=== PATIENT | female | born 1955 | race Caucasian/White ===

== ENCOUNTER 2017-09-06 07:47 | Emergency (ER) | payer OTHER ==
[2017-09-06] MEDS ORDERED: PROPARACAINE 0.5% 15 ML OPHT DROP ONE (08:00)
--- NOTE | 2017-09-06 08:12 | EDPHY ---
H & P Stated Complaint: redness/irritation l eye subconjunctivl hemorrhage inner aspect Time Seen by Provider: 09/06/17 07:49 HPI/ROS: CHIEF COMPLAINT: Left eye redness HISTORY OF PRESENT ILLNESS: The patient presents to the ED with left eye subconjunctival hemorrhage she noticed today. The patient denies any history of fall or trauma. She denies any anticoagulant use. She does take a baby aspirin on a daily basis. The patient denies any significant vision loss. She denies any headache or neurologic symptoms. She has no additional complaints. She does not were contact lenses. REVIEW OF SYSTEMS: A comprehensive 10 point review of systems is otherwise negative aside from elements mentioned in the history of present illness. Source: Patient Exam Limitations: No limitations - Personal History Current Tetanus Diphtheria and Acellular Pertussis (TDAP): Yes - Medical/Surgical History Hx Asthma: No Hx Chronic Respiratory Disease: No Hx Diabetes: No Hx Cardiac Disease: No Hx Renal Disease: No Hx Cirrhosis: No Hx Alcoholism: No Hx HIV/AIDS: No Hx Splenectomy or Spleen Trauma: No Other PMH: htn - Social History Smoking Status: Never smoked - Physical Exam Exam: Visual Acuity: noted from Nurse's notes. Pupils: equal round and reactive to light EOMI Skin: no proptosis, no periorbital erythema or swelling, no vesicles Conjunctivae: Subconjunctival hemorrhage noted in the left eye Anterior chamber: normal, no hyphema or hypopyon Constitutional: Initial Vital Signs Temperature (C) 36.6 C 09/06/17 07:50 Heart Rate 86 09/06/17 07:50 Respiratory Rate 18 09/06/17 07:50 Blood Pressure 169/88 H 09/06/17 07:50 O2 Sat (%) 97 09/06/17 07:50 O2 Delivery Mode Room Air,Heliox Allergies/Adverse Reactions: No Known Allergies Allergy (Unverified 09/06/17 07:49) Home Medications: Medication Instructions Recorded Benicar 09/06/17 Bhrt 09/06/17 Medical Decision Making ED Course/Re-evaluation: The patient presents to the ED with a subconjunctival hemorrhage in her left eye. She will be advised to curtail her use of baby aspirin for the next several weeks. The patient will follow up with her regular consultant in ergonomics and safety for a recheck. She is discharged home with customary aftercare instructions and return precautions. Departure - Departure Disposition: Home, Routine, Self-Care Clinical Impression: Subconjunctival hemorrhage of left eye Condition: Good Instructions: Subconjunctival Hemorrhage (ED) Additional Instructions: 1. I recommend withholding our baby aspirin for the next 10 days. 2. Follow up with your regular consultant in ergonomics and safety for a eye check in the next 2-3 days for any worsening symptoms, blurry vision or other concerns. 3. Please return to the ED for markedly worsening visual complaints, or other concerns. 4. Please follow-up with your primary care provider for a blood pressure recheck within the next 1-2 weeks.
[2017-09-06 08:16] VITALS: BP 148/102
== END 2017-09-06 08:15 | disposition home or self-care (01) ==
LOC: SUPCPDRO 07:47
DX: H11.32 Conjunctival hemorrhage, left eye (principal); I10 Essential (primary) hypertension